=== PATIENT | male | born 1995 | race American Indian/Alaskan Native ===

== ENCOUNTER 2021-06-02 10:07 | Emergency (ER) | payer SELFPAY ==
[2021-06-02] MEDS ORDERED: SODIUM CHLORIDE 0.9% 1000 ML 1,000 ML IV ONE (12:55)
[2021-06-02] MEDS ORDERED: PANTOPRAZOLE 40 MG INJ IV ONE (12:55)
[2021-06-02] MEDS ORDERED: ACETAMINOPHEN 500 MG TAB PO ONE (12:56)
--- NOTE | 2021-06-02 12:56 | Emergency Department Report ---
ED General Adult HPI - General Chief complaint: Abdominal Pain Stated complaint: FEVER AND CHILLS PUI?: Yes Time Seen by Provider: 06/02/21 12:28 Source: patient, RN notes reviewed Mode of arrival: Ambulatory Limitations: No Limitations - History of Present Illness Initial comments: The patient was evaluated in the emergency department for symptoms described in the history of present illness. He/she was evaluated in the context of the global COVID-19 pandemic, which necessitated consideration that the patient might be at risk for infection with the virus that causes COVID-19. Institutional protocols and algorithms that pertain to the evaluation of patients at risk for COVID-19 are in a state of rapid change based on in formation released by regulatory bodies including the CDC and federal and state organizations. These policies and algorithms were followed during the patient's care in the emergency department. Please note that these policies, procedures and recommendations changed on a rapid basis. During the history and physical examination, I had on complete personal protective equipment. This is a 25-year-old gentleman. He is not known to myself previously. He denies chronic medical conditions. The patient is not vaccinated against COVID-19. He has also not received his flu vaccination. He presents to the ER with a day and a half of abdominal cramping, fever, and headache. No loss of taste or smell. Positive nausea. No vomiting. No diarrhea. No urinary symptoms. No testicular pain. No neck pain or neck stiffness. No sensitivity to light or sound. Has taken [id number] cold medication, but has not taken Tylenol or Motrin. -: Gradual, days(s) Location: head, abdomen Quality: aching Consistency: intermittent Improves with: none Worsens with: none - Related Data Previous Rx's Medication Instructions Recorded Last Taken Type Acetaminophen [Non-Aspirin Extra 650 mg PO Q6HR PRN #30 tablet 06/02/21 Unknown Rx Strength] Ibuprofen [Motrin] 600 mg PO Q8H PRN #30 tablet 06/02/21 Unknown Rx Metoclopramide [Reglan] 10 mg PO QID PRN #30 tablet 06/02/21 Unknown Rx Allergies Allergy/AdvReac Type Severity Reaction Status Date / Time No Known Allergies Allergy Unverified 06/02/21 10:36 ED Review of Systems ROS: Stated complaint: FEVER AND CHILLS Other details as noted in HPI Constitutional: fever, malaise, weakness Eyes: denies: eye discharge ENT: denies: epistaxis Respiratory: denies: cough Cardiovascular: denies: chest pain Gastrointestinal: abdominal pain Genitourinary: denies: dysuria, testicular pain Musculoskeletal: myalgia Neurological: headache. denies: weakness ED Past Medical Hx - Past Medical History Previous Medical History?: No - Surgical History Past Surgical History?: No - Medications Home Medications: Home Medications Medication Instructions Recorded Confirmed Last Taken Type Acetaminophen [Non-Aspirin Extra 650 mg PO Q6HR PRN #30 tablet 06/02/21 Unknown Rx Strength] Ibuprofen [Motrin] 600 mg PO Q8H PRN #30 tablet 06/02/21 Unknown Rx Metoclopramide [Reglan] 10 mg PO QID PRN #30 tablet 06/02/21 Unknown Rx ED Physical Exam - General Limitations: No Limitations General appearance: alert, in no apparent distress - Head Head exam: Present: atraumatic, normocephalic - Eye Eye exam: Present: normal appearance, EOMI. Absent: nystagmus - ENT ENT exam: Present: normal exam, normal orophraynx, mucous membranes moist, normal external ear exam - Neck Neck exam: Present: normal inspection, full ROM. Absent: tenderness, men ingismus - Respiratory Respiratory exam: Present: respiratory distress. Absent: stridor (Pulmonary auscultation not performed secondary to lack of disposable stethoscope) - Cardiovascular Cardiovascular Exam: Present: tachycardia (Seen on monitor technician), other (Auscultation not performed secondary to lack of disposable stethoscope) - GI/Abdominal GI/Abdominal exam: Present: soft, tenderness (Minimal tenderness with deep palpation). Absent: distended, guarding, rebound, rigid, pulsatile mass - Rectal Rectal exam: Present: deferred - Extremities Exam Extremities exam: Present: normal inspection, full ROM, other (2+ pulses noted in the bilateral upper and lower extremities. There is no palpable cord. negative Homans sign. Muscular compartments are soft. The pelvis is stable.). Absent: tenderness, pedal edema, calf tenderness - Back Exam Back exam: Present: normal inspection, full ROM. Absent: tenderness, CVA tenderness (R), CVA tenderness (L), paraspinal tenderness, vertebral tenderness - Neurological Exam Neurological exam: Present: alert, oriented X3, normal gait, other (No facial droop. Tongue midline. Extraocular movements intact bilaterally. Facial sensation intact to light touch in V1, V2, V3 distribution bilaterally. 5 and a 5 strength in 4 extremities. Sensation intact to light touch in 4 extremities.). Absent: motor sensory deficit - Psychiatric Psychiatric exam: Present: normal affect, normal mood - Skin Skin exam: Present: warm, dry, intact, normal color. Absent: rash ED Course Vital Signs 06/02/21 06/02/21 06/02/21 10:40 14:19 14:20 Temperature 99.4 F 102.7 F H Pulse Rate 101 H 100 H Respiratory 20 14 Rate Blood Pressure 121/68 Blood Pressure 113/64 [Right] O2 Sat by Pulse 100 99 99 Oximetry 06/02/21 15:49 Temperature 98.9 F Pulse Rate 97 H Respiratory 16 Rate Blood Pressure Blood Pressure 107/75 [Right] O2 Sat by Pulse 96 Oximetry - Reevaluation(s) Reevaluation #1: 06/02/21 14:35 Differential diagnosis, including the not limited to: Influenza, COVID-19, pneumonia, pancreatitis, colitis, diverticulitis, urinary tract infection, perforated viscus Assessment and plan: 25-year-old gentleman, who is febrile and tachycardic, with a GCS of 15, without meningeal signs or nuchal rigidity, normal neurologic examination, mild abdominal tenderness. He is not COVID-19 vaccinated. Approximately 40 to 72 hours into symptoms. Given young age, lack of medical comorbidities, even if this is influenza, treat symptomatically with Motrin and Tylenol. Given fever, abdominal pain, minimal tenderness, treat symptoms, obtain CT scan abdomen pelvis. Obtain urinalysis. Reassess after initial data points. I discussed this with the patient. He articulated understanding. All questions answered. Reassess after data points 06/02/21 16:06 Patient reassessed. He feels improved. Still having minimal pain. Ketorolac ordered. CT scan abdomen pelvis negative for acute findings. Patient resting comfortably in stretcher, and in no acute distress. Urinalysis is pending. Tachycardia improving. Suitable for discharge at this point time with out patient follow-up. Return precautions reviewed. 06/02/21 16:30 Tachycardia resolved. Urinalysis suggest dehydration, but otherwise nonactionable. Counseled patient appropriately. Return precautions reviewed ED Medical Decision Making - Lab Data Result diagrams: 06/02/21 13:11 06/02/21 13:11 Vital Signs 06/02/21 06/02/21 10:40 14:19 Temperature 99.4 F 102.7 F H Pulse Rate 101 H 100 H Respiratory 20 14 Rate Blood Pressure 121/68 Blood Pressure 113/64 [Right] O2 Sat by Pulse 100 99 Oximetry Lab Results 06/02/21 06/02/21 Range/Units 13:11 13:11 WBC 3.4 L (4.5-11.0) K/mm3 RBC 5.09 H (3.65-5.03) M/mm3 Hgb 14.6 (11.8-15.2) gm/dl Hct 43.7 (35.5-45.6) % MCV 86 (84-94) fl MCH 29 (28-32) pg MCHC 33 (32-34) % RDW 12.2 L (13.2-15.2) % Plt Count 193 (140-440) K/mm3 [place] % (Auto) Currency Exchange Specialist PT 14.6 (12.2-14.9) Sec. INR 1.03 (0.87-1.13) Lab Results 06/02/21 06/02/21 06/02/21 Range/Units 13:11 13:11 13:11 WBC 3.4 L (4.5-11.0) K/mm3 RBC 5.09 H (3.65-5.03) M/mm3 Hgb 14.6 (11.8-15.2) gm/dl Hct 43.7 (35.5-45.6) % MCV 86 (84-94) fl MCH 29 (28-32) pg MCHC 33 (32-34) % RDW 12.2 L (13.2-15.2) % Plt Count 193 (140-440) K/mm3 [place] % (Auto) Currency Exchange Specialist PT 14.6 (12.2-14.9) Sec. INR 1.03 (0.87-1.13) Sodium 135 L (137-145) mmol/L Potassium 4.0 (3.6-5.0) mmol/L Chloride 96.2 L (98-107) mmol/L Carbon Dioxide 23 (22-30) mmol/L Anion Gap 20 mmol/L BUN 10 (9-20) mg/dL Creatinine 1.0 (0.8-1.3) mg/dL Estimated GFR > 60 ml/min BUN/Creatinine Ratio 10 % Glucose 98 (75-100) mg/dL Calcium 9.4 (8.4-10.2) mg/dL Total Bilirubin 0.60 (0.1-1.2) mg/dL AST 15 (5-40) units/L ALT 13 (7-56) units/L Alkaline Phosphatase 62 (35-129) units/L Total Creatine Kinase 74 (55-170) units/L Total Protein 7.3 (6.3-8.2) g/dL Albumin 4.6 (3.9-5) g/dL Albumin/Globulin Ratio 1.7 % - Radiology Data Radiology results: report reviewed, image reviewed CT abdomen pelvis w con INDICATION / CLINICAL INFORMATION: Acute abdominal pain and fever. Intravenous/oral OMNI 300 100 ML. TECHNIQUE: Axial CT images were obtained through the abdomen and pelvis after 100 cc of Omnipaque [address] scans at this location are performed using CT dose reduction for ALARA by means of automated exposure control. COMPARISON: None available. FINDINGS: LOWER CHEST: No significant abnormality LIVER: No significant abn ormality GALLBLADDER/BILIARY TREE: No significant abnormality PANCREAS: No significant abnormality SPLEEN: No significant abnormality ADRENALS: No significant abnormality KIDNEYS / URETER: No significant abnormality URINARY BLADDER: No significant abnormality REPRODUCTIVE ORGANS: No significant abno rmality STOMACH / BOWEL: No evidence of bowel obstruction or localized inflammation. The appendix is not discretely seen, though no secondary signs of appendicitis are identified in the right lower quadrant. LYMPH NODES: No significant adenopathy. VASCULATURE: No significant abnormality. OTHER: No free air, free fluid, or focal fluid collection is identified. SKELETAL SYSTEM: No acute osseous findings. IMPRESSION: No acute process of the abdomen or pelvis. No evidence of bowel obstruction or localized inflammation Signer Name: Bret Pinon MD Signed: 06/02/2021 2:02 PM Workstation Name: [id number] Critical care attestation.: If time is entered above; I have spent that time in minutes in the direct care of this critically ill patient, excluding procedure time. ED Disposition Clinical Impression: Acute abdominal pain, Acute febrile illness, COVID-19 vaccination not done Disposition: HOME / SELF CARE / HOMELESS Is pt being admited?: No Does the pt Need Aspirin: No Condition: Good Instructions: COVID-19, Abdominal Pain, Adult Additional Instructions: As we discussed, the patient most likely has novel coronavirus/COVID. the symptoms of COVID will typically persist 10 to 14 days. There is no cure at this time for COVID. Please make certain to self isolate and self quarantine, follow-up with an outpatient primary care doctor within the next 3 to 5 days, wash hands with soap and water frequently, thoroughly and often, patient may take the prescribed medications as needed and directed. Advance diet and drink plenty of fluids as tolerated. Avoid interactions with the very elderly, very young, and those with chronic medical conditions. Return to the emergency room right away with new pain, worsening pain, migration of pain, projectile vomiting, change in mental status, confusion, inability to tolerate liquid feeds, new, worsened or different symptoms not present on the initial emergency room evaluation. Do not take metformin medication for the next 2 days, if patient takes this medication Prescriptions: Ibuprofen [Motrin] 600 mg PO Q8H PRN #30 tablet PRN Reason: Pain Acetaminophen [Non-Aspirin Extra Strength] 650 mg PO Q6HR PRN #30 tablet PRN Reason: Pain , Severe (7-10) Metoclopramide [Reglan] 10 mg PO QID PRN #30 tablet PRN Reason: Nausea Referrals: PRIMARY CAREMD [Primary Care Provider] - 3-5 Days MARLENE VELASQUEZ MD [Staff Physician] - 3-5 Days [facility] [Provider Group] - 3-5 Days Forms: Work/School Release Form(ED)
[2021-06-02 13:55] LABS: Hematocrit 43.7 % (35.5-45.6); Hemoglobin 14.6 gm/dl (11.8-15.2); Mean Corpuscular HGB Conc 33 % (32-34); Mean Corpuscular Volume 86 fl (84-94); Platelet Count 193 K/mm3 (140-440); Red Blood Count 5.09 M/mm3 (3.65-5.03); Red Cell Distribution Width 12.2 % (13.2-15.2)
[2021-06-02 14:06] LABS: INR 1.03 (0.87-1.13)
[2021-06-02 14:25] LABS: Alanine Aminotransferase 13 units/L (7-56); Albumin 4.6 g/dL (3.9-5); BUN/Creatinine Ratio 10; Blood Urea Nitrogen 10 mg/dL (9-20); Calcium 9.4 mg/dL (8.4-10.2); Hemolysis Index 8
--- NOTE | 2021-06-02 15:06 | Cat Scan Report ---
CT abdomen pelvis w con INDICATION / CLINICAL INFORMATION: Acute abdominal pain and fever. Intravenous/oral OMNI 300 100 ML. TECHNIQUE: Axial CT images were obtained through the abdomen and pelvis after 100 cc of Omnipaque [address] scans at this location are performed using CT dose reduction for ALARA by means of automated exposure control. COMPARISON: None available. FINDINGS: LOWER CHEST: No significant abnormality LIVER: No significant abnormality GALLBLADDER/BILIARY TREE: No significant abnormality PANCREAS: No significant abnormality SPLEEN: No significant abnormality ADRENALS: No significant abnormality KIDNEYS / URETER: No significant abnormality URINARY BLADDER: No significant abnormality REPRODUCTIVE ORGANS: No significant abnormality STOMACH / BOWEL: No evidence of bowel obstruction or localized inflammation. The appendix is not disc retely seen, though no secondary signs of appendicitis are identified in the right lower quadrant. LYMPH NODES: No significant adenopathy. VASCULATURE: No significant abnormality. OTHER: No free air, free fluid, or focal fluid collection is identified. SKELETAL SYSTEM: No acute osseous findings. IMPRESSION: No acute process of the abdomen or pelvis. No evidence of bowel obstruction or localized inflammation Signer Name: Bret Pinon MD Signed: 06/02/2021 3:02 PM Workstation Name: [id number]
[2021-06-02 15:54] VITALS: BP 107/75
[2021-06-02] MEDS ORDERED: KETOROLAC 30 MG/1 ML INJ IV ONE (16:05)
[2021-06-02 16:19] LABS: Bilirubin,Urine NEG (Negative); Blood,Urine NEG (Negative); Color,Urine Yellow (Yellow); Mucus,Urine FEW /HPF; Protein,Urine <15 mg/dL mg/dL (Negative); RBC,Urine < 1.0 /HPF (0.0-6.0); Urobilinogen,Urine < 2.0 mg/dL (<2.0)
[2021-06-02 16:21] LABS: Total Cells Counted 100
[2021-06-02 16:22] LABS: Platelet Estimate Consistent w Auto
[2021-06-02 16:23] LABS: Anisocytosis 1+; Ovalocytes Few; Poikilocytosis Few; Stomatocytes Few
== END 2021-06-02 17:20 | disposition home or self-care (01) ==
LOC: ED 10:07
DX: R50.9 Fever, unspecified (principal); R11.0 Nausea; R10.9 Unspecified abdominal pain; R51.9 Headache, unspecified; Z79.899 Other long term (current) drug therapy
CPT/HCPCS: 36415; 74177; 80053; 81001; 82550; 83690; 85007; 85025; 85610; 96361; 96374; 96375; 99284; C9113; J1885; J7030; Q9967; Q0162